=== PATIENT | female | born 1945 | race Caucasian/White ===

== ENCOUNTER 2016-04-23 12:40 | Inpatient (IN) | payer MEDICAID, MEDICARE ==
[~2016-04-23] VITALS: Ht 160 cm; Wt 76.7 kg
[2016-04-23 12:45] VITALS: BP_SYST 131; BP_SYST 149; BP_DIAS 112; BP_DIAS 72; PULSE 102; RESP 18; TEMP 98.4; O2SAT 100
--- NOTE | 2016-04-23 12:51 | NUR ---
Pt BIB BLS, placed in ER bed 08, report given to DORIAN Bui.
--- NOTE | 2016-04-23 13:00 | NUR ---
Pt bib EMS for L knee swelling and pain s/p mech fall x 2months.Pt seen by PMD. Pt ambulates w/front wheeled walker.
--- NOTE | 2016-04-23 13:15 | NUR ---
ER at bedside examining patient.
[2016-04-23] MEDS ORDERED: KETOROLAC TROMETHAMINE 30 MG VIAL IM ONE (13:30)
--- NOTE | 2016-04-23 13:43 | NUR ---
lab at [facility] for blood specimen collection
[2016-04-23 14:01] LABS: BASOPHILS % (AUTO) 0.3 % (0.0-2.0); EOSINOPHILS % (AUTO) 0.4 % (0.0-4.0); HEMATOCRIT 34.1 % (36-48); HEMOGLOBIN 11.8 g/dL (12.0-16.0); LYMPHOCYTES % (AUTO) 8.7 % (20.5-51.5); MEAN CORPUSCULAR HEMOGLOBIN 28 pg (27-31); MEAN CORPUSCULAR HGB CONC 35 % (32-36); MEAN CORPUSCULAR VOLUME 82 fL (79.0-98.0); MONOCYTES # (AUTO) 0.8 K/uL (0.0-1.0); MONOCYTES % (AUTO) 6.8 % (1.7-9.3); NEUTROPHILS # (AUTO) 9.8 K/uL (1.8-7.7); NEUTROPHILS % (AUTO) 83.8 % (40.0-70.0); PLATELET COUNT (AUTO) 261 K/uL (130-430); RED BLOOD CELL COUNT(AUTO) 4.15 MIL/uL (4.2-6.2); RED CELL DISTRIBUTION WIDTH 14.5 % (9.0-15.0); WHITE BLOOD COUNT (AUTO) 11.6 K/uL (4.8-10.8)
[2016-04-23 14:17] LABS: CALCIUM 9.1 mg/dL (8.4-11.0); POTASSIUM 3.5 mmol/L (3.5-5.1)
[2016-04-23 14:18] LABS: CREATININE 3.97 mg/dL (0.55-1.30); URIC ACID 8.9 mg/dL (2.4-7.0)
--- NOTE | 2016-04-23 14:25 | NUR ---
PT SLEEPY AROUSABLE, PT REPORTS RESIDING IN [facility].
--- NOTE | 2016-04-23 15:00 | NUR ---
PT'S SOILED CLOTHES CHANGED AND PT CLEANED.SOILED LINEN CHANGED ALSO.PT TOLERATED WELL. NO SKIN BREAKDOWN NOTED.
--- NOTE | 2016-04-23 15:15 | NUR ---
PT APPEARS TO BE UNABLE TO CARE FOR SELF.DR.[place].
--- NOTE | 2016-04-23 15:30 | NUR ---
# 16 FR Mcgill catheter with use of sterile technique. Immediate return of 60 cc TURBID urine noted. Bedside drainage bag placed below level of bladder. Urine sample collected and sent to lab. Pt tolerated procedure WELL. Patient arrived with mcgill in place, changed due to standard of practice prior to admission. Patient unable to toilet self.
--- NOTE | 2016-04-23 16:06 | NUR ---
Attempted to reconcile medication, pt states she takes HTN medication, name unknown.
[2016-04-23 16:10] LABS: BILIRUBIN,URINE 1+ (NEGATIVE); BLOOD, URINE 3+ (NEGATIVE); CLARITY/URINE SL CLOUDY (CLEAR); COLOR,URINE AMBER (YELLOW); GLUCOSE,URINE NEGATIVE (NEGATIVE); KETONES,URINE TRACE (NEGATIVE); LEUKOCYTE ESTERASE ,URINE 2+ (NEGATIVE); NITRITE, URINE POSITIVE (NEGATIVE); PROTEIN URINE 2+ (NEGATIVE); UROBILINOGEN,URINE 0.2 (0.2-1.0)
[2016-04-23] MEDS ORDERED: cefTRIAXone 1 GM IVPB PREMIX 50 ML IV ONE (16:15)
[2016-04-23 16:26] LABS: RBC,URINE >100 /HPF (0-3); WBC,URINE 80-100 /HPF (0-3)
[2016-04-23 16:27] LABS: BACTERIA,URINE MANY /HPF (None Seen)
[2016-04-23 16:34] LABS: BENZODIAZEPINE, URINE POSITIVE (NEG <=150); METHAMPHETAMINES SCREEN,URINE POSITIVE (NEG <=500); OPIATE, URINE POSITIVE (NEG <=100); URINE METHADONE POSITIVE (NEG <=200)
[2016-04-23 16:35] LABS: BARBITURATE, URINE NEGATIVE (NEG <=200); CANNABINOID, URINE NEGATIVE (NEG <=50); COCAINE, URINE NEGATIVE (NEG <=150); PHENCYCLIDINE SCREEN,URINE NEGATIVE (NEG <=25); UR TRICYCLIC ANTIDEPRESSANTS NEGATIVE (NEG <=300); URINE AMPHETAMINE NEGATIVE (NEG <=500); URINE OXYCODONE SCREEN NEGATIVE (NEG <=100); URINE PROPOXYPHENE SCREEN NEGATIVE (NEG <=300)
--- NOTE | 2016-04-23 16:40 | NUR ---
Patient will be admitted to care of . Admitted to MED/SURG unit. Will go to room 112A. Summary report printed. Report given to ADMISSION RN.
[2016-04-23] MEDS ORDERED: NACL 0.9% 1,000 ML IV ONE (16:45)
--- NOTE | 2016-04-23 16:46 | NUR ---
ADMISSION NOTE Received patient from ER via sandy, received report from ANTHONY ALARCON. Patient admitted with diagnosis of LEFT KNEE PAIN /DEHYDRATION. Patient oriented to hospital routine, call light, toileting and safety-patient verbalized understanding.
[2016-04-23 16:50] VITALS: BP 139/77; PULSE 72; RESP 18; TEMP 96.6; O2SAT 96
--- NOTE | 2016-04-23 17:40 | NUR ---
NOTE REC'D PT FROM JUSTUS CRUZ RN AT 1700. PT'S ADMISSION ASSESSMENT WAS COMPLETED AT THIS TIME. PT CONFUSED, STATES SHE IS NOT SURE HOW SHE GOT TO THE HOSPITAL AND WHAT SHE WAS HERE FOR. STATES HER STOMACH HURTS. PT HAS FIGUEREDO CATHETER AND IV IN LEFT FOREARM WITH IVF'S INFUSING WELL AT THIS TIME. PT WAS ORIENTED TO ROOM AND NURSING ROUTINES AND PROCEDURES AT THIS TIME. PT STATES SHE IS HUNGRY AND COLD. PT VERY DROWSY WELL AT THIS TIME. PT NOW SITTING UP IN BED EATING HER DINNER. CALL LIGHT WITHIN REACH. Addendum: 04/23/16 at 1750 by Sobeida Palacios RN PT STATES SHE DOES NOT REMEMBER THE NAME OF HER HTN MEDICATION OR THE NAME OF HER PHARMACY AT THIS TIME.
--- NOTE | 2016-04-23 18:18 | NUR ---
NOTE DR HENRY AT BEDSIDE AT THIS TIME.
[2016-04-23] MEDS ORDERED: SUCR1TAB78 PO (18:31)
[2016-04-23] MEDS ORDERED: AMIT10TA6 PO (18:31)
--- NOTE | 2016-04-23 18:34 | NUR ---
NOTE PT'S DAUGHTER CA CALLED FOR MEDICATION LIST AND LIVING SITUATION OF PT. CA STATES PT WAS LIVING IN A MOTEL FOR A FEW DAYS AND SHE IS AWARE OF 2 OF PT'S MEDICATIONS AND PT'S PHARMACY IS [facility] [place] [facility] DR HENRY GIVEN THIS INFORMATION, PT SLEEPING AT THIS TIME. NO SOB/RESP DISTRESS OR PAIN/DISCOMFORT NOTED. PT NEXT TO NURSES' STATION FOR CLOSE OBSERVATION. FIGUEREDO CATHETER INTACT AND IVF'S INFUSING WELL AT THIS TIME. CALL LIGHT WITHIN REACH.
[2016-04-23 20:00] VITALS: BP 140/86; PULSE 86; RESP 18; TEMP 97.9; O2SAT 97
--- NOTE | 2016-04-23 20:00 | NUR ---
PM ASSESSMENT: PATIENT IN BED WITH EYES CLOSE. OPENS WHEN CALLED HER NAME. KNOWS HER NAME ,WHERE SHE IS BUT NO SPECEFIC PLACE.FORGETFUL OF TIME. KNOW BIRTHDAY.SLEEPY. IVF INFUSING WELL AT 150ML/HR REPORTED TO FINISH THE BAG THEN FOLLOW ORDER.LEFT KNEE AND LEG SWOLLEN, WARM TO TOUCH. RIGHT WITH LESS SWELLING. FIGUEREDO DRAINING WITH DARK CONCENTRATED URINE. CALL LIGHT WITHIN REACH. BED IN LOW POSITION. BED ALARM TURNED ON.
--- NOTE | 2016-04-23 22:05 | NUR ---
NEW IVF STARTED. IV SITE CLEAR.REPOSITIONED. ANSWERED QUESTIONS CORRECTLY. TOOK PO MEDS WITHOUT PROBLEM.
[2016-04-23] MEDS ORDERED: KCL 20 mEq in 100 mL (PREMIX) 100 ML IV ONE (22:20)
[2016-04-23] MEDS: POTASSIUM CHLORIDE 10 MEQ in NACL 0.9% 1,000 ML IV SCH (22:39)
[2016-04-23] MEDS: COLCHICINE 0.6 MG TABLET PO SCH (22:44)
[2016-04-23] MEDS: HYDROcodone/ACETAMIN 5-325 MG TAB (NORCO/ VICODIN) PO PRN (22:47)
[2016-04-23 23:24] VITALS: BP 149/77; PULSE 64; RESP 18; TEMP 97.2; O2SAT 99
--- NOTE | 2016-04-24 00:10 | NUR ---
Consultation called: Reason for consultation: LEO Was consult called: Yes Person who was notified: Britt Consulting Physician: Kenji Sultana Shut Off Worker
--- NOTE | 2016-04-24 00:15 | NUR ---
REPOSITIONED. NEEDS ATTENDED.MORE COHERENT.
[2016-04-24 04:04] VITALS: BP 96/52; PULSE 62; RESP 18; TEMP 97.8; O2SAT 97
--- NOTE | 2016-04-24 04:20 | NUR ---
VITAL SIGNS TAKEN. NO ACUTE DISTRESS. DENIES PAIN.
--- NOTE | 2016-04-24 06:30 | NUR ---
CLOSING: STILL WITH EPISODES OF CONFUSIONS. HOURLY ROUNDS DONE. ALL NEEDS WERE ATTENDED,KEEP REORIENTATING. FALL AND ASPIRATION PRECAUTION IN PROGRESS.
[2016-04-24 07:21] LABS: BASOPHILS # (AUTO) 0.1 K/uL (0.0-0.2); BASOPHILS % (AUTO) 0.9 % (0.0-2.0); EOSINOPHILS # (AUTO) 0.5 K/uL (0.0-0.4); EOSINOPHILS % (AUTO) 5.7 % (0.0-4.0); HEMOGLOBIN 9.2 g/dL (12.0-16.0); LYMPHOCYTES # (AUTO) 1.2 K/uL (1.0-5.5); LYMPHOCYTES % (AUTO) 14.1 % (20.5-51.5); MEAN CORPUSCULAR HEMOGLOBIN 28 pg (27-31); MEAN CORPUSCULAR HGB CONC 33 % (32-36); MEAN CORPUSCULAR VOLUME 85 fL (79.0-98.0); MONOCYTES # (AUTO) 0.7 K/uL (0.0-1.0); MONOCYTES % (AUTO) 8.6 % (1.7-9.3); NEUTROPHILS # (AUTO) 5.8 K/uL (1.8-7.7); NEUTROPHILS % (AUTO) 70.7 % (40.0-70.0); PLATELET COUNT (AUTO) 225 K/uL (130-430); RED BLOOD CELL COUNT(AUTO) 3.31 MIL/uL (4.2-6.2); RED CELL DISTRIBUTION WIDTH 15.1 % (9.0-15.0)
[2016-04-24 07:29] LABS: WHITE BLOOD COUNT (AUTO) 8.3 K/uL (4.8-10.8)
[2016-04-24 07:49] LABS: ALBUMIN 2.3 g/dL (3.4-4.8); CALCIUM 8.3 mg/dL (8.4-11.0); CREATININE 2.62 mg/dL (0.55-1.30); FREE T4 (FREE THYROXINE) 0.9 ng/dL (0.6-1.6); POTASSIUM 3.3 mmol/L (3.5-5.1); THYROID STIMULATING HORMONE 0.44 uIu/mL (0.34-4.82); TOTAL BILIRUBIN 0.2 mg/dL (0.0-1.0)
--- NOTE | 2016-04-24 08:00 | NUR ---
AM ROUNDS: NO s/s of distress noted. Will continue to monitor.
[2016-04-24 08:55] VITALS: BP 109/57; PULSE 59; RESP 20; TEMP 98.4; O2SAT 97
[2016-04-24] MEDS: COLCHICINE 0.6 MG TABLET PO SCH ×2 (09:00→20:49)
--- NOTE | 2016-04-24 09:33 | NUR ---
Nutrition Update Toni Scale 17 noted. Pt admitted for knee pain, dehydration. Diet: regular BMI: 30.1 kg/m2 RD to follow per nutrition care standards.
--- NOTE | 2016-04-24 10:03 | NUR ---
PATIENT RESTING: Patient resting quietly. No acute distress noted. Vital signs within normal range.
[2016-04-24] MEDS ORDERED: FERR-57 PO (11:26)
[2016-04-24] MEDS ORDERED: PRO40 PO (11:26)
[2016-04-24 12:00] VITALS: BP 108/54; PULSE 61; RESP 21; TEMP 98; O2SAT 97
--- NOTE | 2016-04-24 12:26 | NUR ---
PATIENT RESTING: Patient resting quietly. No acute distress noted. Vital signs within normal range.
--- NOTE | 2016-04-24 12:54 | NUR ---
Social Service Note: Pt referred to manager social responsibility by physician due to pt being homeless. ASSISTANT COOK met with pt at bedside; ASSISTANT COOK asked pt about her living situation; pt states that she "thinks" she came from a motel; pt cannot tell ASSISTANT COOK which motel; pt cannot tell ASSISTANT COOK how long she has been at the motel. Pt states that she was living with her daughter; pt cannot tell ASSISTANT COOK the name of her daughter or when she was last living with her daughter. Pt states that she receives social security; pt cannot tell ASSISTANT COOK how much she receives. Pt states that she has 5 daughters. ASSISTANT COOK has placed homeless waiver and [facility] list in pt's chart. ASSISTANT COOK will remain available for support and will assist further once pt has been evaluated by PT and a DC plan has been determined.
[2016-04-24] MEDS ORDERED: POTASSIUM CHLORIDE 20 MEQ TAB.PRT.SR PO ONE (13:15)
[2016-04-24] MEDS: POTASSIUM CHLORIDE 10 MEQ in NACL 0.9% 1,000 ML IV SCH (13:24)
[2016-04-24] MEDS: HYDROcodone/ACETAMIN 5-325 MG TAB (NORCO/ VICODIN) PO PRN ×2 (13:29→20:55)
[2016-04-24] MEDS: SUCRALFATE 1 GM TABLET PO SCH ×2 (14:22→20:53)
--- NOTE | 2016-04-24 14:32 | NUR ---
PATIENT RESTING: Patient resting quietly. No acute distress noted. Vital signs within normal range.
[2016-04-24] MEDS: cefTRIAXone 1 GM IVPB PREMIX 50 ML IV SCH (15:56)
[2016-04-24 16:00] VITALS: BP 129/72; PULSE 58; RESP 20; TEMP 98; O2SAT 98
--- NOTE | 2016-04-24 16:13 | NUR ---
PATIENT RESTING: Patient resting quietly. No acute distress noted. Vital signs within normal range.
--- NOTE | 2016-04-24 18:54 | NUR ---
CLOSING NOTE: All needs met. Patient kept NPO since lunch for abdominal ultra sound to be performed tonight. Will endorse to NOC shift nurse.
--- NOTE | 2016-04-24 19:40 | NUR ---
initial nursing notes: Patient is awake. Patient is NPO due to abdominal ultrasound. IV fluid infusing on the left hand.
[2016-04-24 20:30] VITALS: BP 145/71; PULSE 63; RESP 16; TEMP 99.2; O2SAT 98
[2016-04-24] MEDS: FERROUS SULFATE 325 MG TABLET.DR PO SCH (20:50)
[2016-04-24] MEDS: AMITRIPTYLINE HCL 10 MG TABLET (ELAVIL) PO SCH (20:52)
[2016-04-24] MEDS: PANTOPRAZOLE SODIUM 40 MG TAB PO SCH (20:53)
--- NOTE | 2016-04-24 21:40 | NUR ---
nursing rounds: Patient has resumed diet. Abdominal ultrasound completed.
--- NOTE | 2016-04-24 23:40 | NUR ---
nursing rounds: Patient is resting in bed. Patient denies of having pain.
[2016-04-25] VITALS: BP 136/70; PULSE 60; RESP 18; TEMP 98.6; O2SAT 99
[2016-04-25] MEDS: POTASSIUM CHLORIDE 10 MEQ in NACL 0.9% 1,000 ML IV SCH ×3 (00:45→23:33)
--- NOTE | 2016-04-25 01:40 | NUR ---
nursing rounds: Patient is asleep in bed. No shortness of breath noted.
--- NOTE | 2016-04-25 03:40 | NUR ---
nursing rounds: Patient calmly resting in bed. Patient has no respiratory distress.
[2016-04-25 04:43] VITALS: BP 130/74; PULSE 64; RESP 18; TEMP 98.5; O2SAT 94
--- NOTE | 2016-04-25 05:40 | NUR ---
nursing rounds: Patient is asleep. IV access and [place] catheter intact.
[2016-04-25 07:46] LABS: BASOPHILS # (AUTO) 0.1 K/uL (0.0-0.2); BASOPHILS % (AUTO) 0.8 % (0.0-2.0); EOSINOPHILS # (AUTO) 0.4 K/uL (0.0-0.4); HEMATOCRIT 29.5 % (36-48); HEMOGLOBIN 9.6 g/dL (12.0-16.0); LYMPHOCYTES # (AUTO) 0.9 K/uL (1.0-5.5); LYMPHOCYTES % (AUTO) 12.2 % (20.5-51.5); MEAN CORPUSCULAR HEMOGLOBIN 28 pg (27-31); MEAN CORPUSCULAR HGB CONC 33 % (32-36); MEAN CORPUSCULAR VOLUME 85 fL (79.0-98.0); MONOCYTES # (AUTO) 0.5 K/uL (0.0-1.0); MONOCYTES % (AUTO) 6.5 % (1.7-9.3); NEUTROPHILS # (AUTO) 5.4 K/uL (1.8-7.7); NEUTROPHILS % (AUTO) 74.5 % (40.0-70.0); PLATELET COUNT (AUTO) 267 K/uL (130-430); RED BLOOD CELL COUNT(AUTO) 3.47 MIL/uL (4.2-6.2); RED CELL DISTRIBUTION WIDTH 15.7 % (9.0-15.0); WHITE BLOOD COUNT (AUTO) 7.3 K/uL (4.8-10.8)
--- NOTE | 2016-04-25 07:47 | NUR ---
AM ROUNDS: No s/s of distress noted. Will continue to monitor.
[2016-04-25 08:04] LABS: ALBUMIN 2.3 g/dL (3.4-4.8); CALCIUM 8.5 mg/dL (8.4-11.0); CREATININE 1.6 mg/dL (0.55-1.30); POTASSIUM 3.5 mmol/L (3.5-5.1); TOTAL BILIRUBIN 0.2 mg/dL (0.0-1.0); TOTAL PROTEIN, SERUM 6.2 g/dL (6.4-8.3)
[2016-04-25] MEDS: HYDROcodone/ACETAMIN 5-325 MG TAB (NORCO/ VICODIN) PO PRN ×3 (08:44→21:09)
[2016-04-25] MEDS: FERROUS SULFATE 325 MG TABLET.DR PO SCH ×2 (08:44→21:10)
[2016-04-25] MEDS: SUCRALFATE 1 GM TABLET PO SCH ×3 (08:44→21:10)
[2016-04-25] MEDS: COLCHICINE 0.6 MG TABLET PO SCH ×2 (08:44→21:10)
[2016-04-25 08:46] VITALS: BP 130/59; PULSE 66; RESP 20; TEMP 99.1; O2SAT 96
--- NOTE | 2016-04-25 08:49 | NUR ---
closing nursing notes: Patient is awake and alert. Patient denies of having pain. Patient is in no acute respiratory distress. Saline lock intact, no bleeding and no infiltration noted. No episodes of fall and no injuries throughout the slab miller operator. Provided nursing report to incoming morning shift nurse, DORIAN Goetz, at patient's bedside.
[2016-04-25] MEDS: PANTOPRAZOLE SODIUM 40 MG TAB PO SCH ×2 (09:00→21:09)
--- NOTE | 2016-04-25 10:11 | NUR ---
PATIENT RESTING: Patient resting quietly. No acute distress noted. Vital signs within normal range.
--- NOTE | 2016-04-25 11:16 | NUR ---
Pt refused hygienic care. Pt stated that she didn't wanted it right now. Will approach Pt later on during the day. DORIAN Goetz was notified and aware.
[2016-04-25 12:00] VITALS: BP 133/65; PULSE 70; RESP 18; TEMP 97.9; O2SAT 99
--- NOTE | 2016-04-25 12:30 | NUR ---
PHYSICAL THERAPY CO-SIGN The Physical Therapy Progress Notes documented by General Teller have been reviewed. Reviewed/Co-Signed by: Susanna Frank,PT Documentation Done by: Damir Linder PTA I concur with the documentation of this APPLICATION INTEGRATION ENGINEER. Plan: continue PT as per plan of care. Addendum: 04/25/16 at 1427 by Susanna Frank PT Amended: Links added.
--- NOTE | 2016-04-25 12:30 | NUR ---
PATIENT RESTING: Patient resting quietly. No acute distress noted. Vital signs within normal range.
--- NOTE | 2016-04-25 14:00 | NUR ---
PATIENT RESTING: Patient resting quietly. No acute distress noted. Vital signs within normal range.
[2016-04-25] MEDS: cefTRIAXone 1 GM IVPB PREMIX 50 ML IV SCH (15:05)
[2016-04-25 16:00] VITALS: BP 129/74; PULSE 69; RESP 18; TEMP 97.6; O2SAT 94
--- NOTE | 2016-04-25 18:36 | NUR ---
PT REFUSED HYGIENIC CARE (2ND ATTEMPT) PT STATED THAT SHE WAS JUST TO TIRED. DORIAN PACKER WAS NOTIFIED AND AWARE.
--- NOTE | 2016-04-25 19:35 | NUR ---
INITIAL NOTE Patient resting on the bed. No acute distress. Denied of pain at this time. Skin warm and dry to touch. IV intact to left wrist, no redness, no swelling, no drainage. On NS with KCl 10mEq at 100ml/hr, infusing well. F/C intact, drain gravity with yellow urine. SCD in placed. Safety measure maintained. Call light within reached. Side rails up, bed alarm on, bed in low position. Will continue to monitor.
[2016-04-25] MEDS: AMITRIPTYLINE HCL 10 MG TABLET (ELAVIL) PO SCH (21:10)
--- NOTE | 2016-04-25 23:22 | NUR ---
ROUND Patient sleeping at this time. No acute distress. Safety measure maintained. Call light within reached. Bed in low position, side rails up, bed alarm on. Continue to monitor.
[2016-04-25 23:54] VITALS: BP 129/66; PULSE 69; RESP 18; TEMP 98.2; O2SAT 97
[2016-04-26] MEDS: HYDROcodone/ACETAMIN 5-325 MG TAB (NORCO/ VICODIN) PO PRN ×5 (01:39→22:29)
--- NOTE | 2016-04-26 01:39 | NUR ---
NORCO GIVEN Patient C/O left knee pain 08/26. No acute distress. [place] 5/325mg 1 tab given as ordered. Safety measure maintained. Call light within reached. Bed in low position, bed alarm on, side rails up. Continue to monitor.
--- NOTE | 2016-04-26 03:27 | NUR ---
ROUND Patient resting on the bed with eyes closed. No acute distress. Call light within reached. Bed in low position, bed alarm on, side rails up. Continue to monitor.
[2016-04-26 04:06] VITALS: BP 146/75; PULSE 64; RESP 18; TEMP 98.4; O2SAT 97
--- NOTE | 2016-04-26 04:57 | NUR ---
ROUND Patient resting on the bed with eyes closed. No acute distress. Safety measure maintained. Call light within reached. Bed alarm on, side rails up, bed in low position. Continue to monitor.
--- NOTE | 2016-04-26 06:40 | NUR ---
CLOSING NOTE Patient resting on the bed with eyes closed. No acute distress. No c/o pain at this time. Skin warm and dry to touch. IV intact to left wrist, no redness, no swelling, no drainage. On NS with KCl 10mEq at 100ml/hr, infusing well. F/C intact, drain gravity with yellow urine. SCD in placed. All needs met. Hourly rounding during shift. Safety measure maintained. Call light within reached. Side rails up, bed alarm on, bed in low position. Will endorse to morning shift nurse.
[2016-04-26 07:07] LABS: BASOPHILS % (AUTO) 0.8 % (0.0-2.0); EOSINOPHILS # (AUTO) 0.6 K/uL (0.0-0.4); EOSINOPHILS % (AUTO) 10.6 % (0.0-4.0); HEMATOCRIT 28.9 % (36-48); HEMOGLOBIN 9.7 g/dL (12.0-16.0); LYMPHOCYTES # (AUTO) 1.6 K/uL (1.0-5.5); LYMPHOCYTES % (AUTO) 26.6 % (20.5-51.5); MEAN CORPUSCULAR HEMOGLOBIN 28 pg (27-31); MEAN CORPUSCULAR HGB CONC 34 % (32-36); MEAN CORPUSCULAR VOLUME 84 fL (79.0-98.0); MONOCYTES # (AUTO) 0.6 K/uL (0.0-1.0); MONOCYTES % (AUTO) 9.7 % (1.7-9.3); NEUTROPHILS # (AUTO) 3.1 K/uL (1.8-7.7); NEUTROPHILS % (AUTO) 52.3 % (40.0-70.0); PLATELET COUNT (AUTO) 322 K/uL (130-430); RED BLOOD CELL COUNT(AUTO) 3.46 MIL/uL (4.2-6.2); RED CELL DISTRIBUTION WIDTH 15.4 % (9.0-15.0); WHITE BLOOD COUNT (AUTO) 5.9 K/uL (4.8-10.8)
[2016-04-26 07:55] LABS: ALBUMIN 2.2 g/dL (3.4-4.8); CALCIUM 8.1 mg/dL (8.4-11.0); CREATININE 1.28 mg/dL (0.55-1.30); POTASSIUM 3.1 mmol/L (3.5-5.1); TOTAL BILIRUBIN 0.2 mg/dL (0.0-1.0)
--- NOTE | 2016-04-26 08:00 | NUR ---
OPENING NOTE: RECEIVED REPORT FROM NIGHT NURSE. PATIENT IS RESTING COMFORTABLY IN BED. NO S/S OF DISTRESS OR SOB. PATIENT IS ALERT AND ORIENTED. FIGUEREDO DRAINING TO GRAVITY. IV IS PATENT. VITAL SIGNS WNL, ASSESSMENT COMPLETE. CALL LIGHT IN REACH, BED IN LOWEST POSITION, AND WILL CONTINUE TO MONITOR.
[2016-04-26] MEDS: COLCHICINE 0.6 MG TABLET PO SCH ×2 (08:22→21:29)
[2016-04-26] MEDS: SUCRALFATE 1 GM TABLET PO SCH ×3 (08:22→21:29)
[2016-04-26] MEDS: FERROUS SULFATE 325 MG TABLET.DR PO SCH ×2 (08:23→21:28)
[2016-04-26] MEDS: PANTOPRAZOLE SODIUM 40 MG TAB PO SCH ×2 (08:23→21:29)
[2016-04-26 08:38] VITALS: BP 148/68; PULSE 73; RESP 18; TEMP 98.3; O2SAT 96
[2016-04-26] MEDS ORDERED: POTASSIUM CHLORIDE 20 MEQ/PKT PACKET PO ONE (09:15)
[2016-04-26] MEDS: POTASSIUM CHLORIDE 10 MEQ in NACL 0.9% 1,000 ML IV SCH ×3 (09:44→22:35)
--- NOTE | 2016-04-26 10:09 | NUR ---
NOTE: PATIENT IS RESTING COMFORTABLY IN BED. NO S/S OF DISTRESS OR SOB. PATIENT IS ALERT AND ORIENTED. CALL LIGHT IN REACH, BED IN LOWEST POSITION, AND WILL CONTINUE TO MONITOR.
--- NOTE | 2016-04-26 10:34 | NUR ---
Discharge Planning Called and requested list of contracted SNF facilities from [facility]. Per MIKAYLA Freitas @ [facility], asked that order be faxed to her attn: [phone]. Order faxed. Addendum: 04/26/16 at 1450 by Gricelda Palacio RN Called and left message with Rosaura [phone] @ [facility] again requesting list of contracted SNFs
[2016-04-26 11:07] LABS: HEPATITIS A AB, IgM Negative (Negative); HEPATITIS B CORE AB, IgM Negative (Negative); HEPATITIS B SURFACE AG Negative (Negative)
[2016-04-26 11:36] VITALS: BP 146/66; PULSE 68; RESP 19; TEMP 98.2; O2SAT 96
[2016-04-26] MEDS ORDERED: POTASSIUM CHLORIDE 20 MEQ TAB.PRT.SR PO ONE (12:00)
--- NOTE | 2016-04-26 12:00 | NUR ---
NOTE: PATIENT IS RESTING COMFORTABLY IN BED. NO S/S OF DISTRESS OR SOB. CALL LIGHT IN REACH, BED IN LOWEST POSITION, AND WILL CONTINUE TO MONITOR.
--- NOTE | 2016-04-26 14:00 | NUR ---
NOTE: PATIENT IS RESTING COMFORTABLY IN BED. NO S.S OF DISTRESS OR SOB. PATIENT IS AWAKE AND ALERT. CALL LIGHT IN REACH, BED IN LOWEST POSITION, AND WILL CONTINUE TO MONITOR.
[2016-04-26 14:16] VITALS: Ht 160 cm; Wt 76.7 kg
[2016-04-26 15:44] VITALS: BP 145/77; PULSE 68; RESP 19; TEMP 97; O2SAT 99
[2016-04-26] MEDS: cefTRIAXone 1 GM IVPB PREMIX 50 ML IV SCH (16:00)
--- NOTE | 2016-04-26 16:16 | NUR ---
NOTE: PATIENT IS RESTING COMFORTABLY IN BED. NO S.S OF DISTRESS OR SOB. PATIENT IS ASLEEP. CALL LIGHT IN REACH, BED IN LOWEST POSITION, AND WILL CONTINUE TO MONITOR.
--- NOTE | 2016-04-26 18:05 | NUR ---
PHYSICAL THERAPY CO-SIGN The Physical Therapy Progress Notes documented by Acute Care Occupational Therapist have been reviewed. I CONCUR W/SUPPLIES PACKER NOTE; CONT PER TX PLAN Reviewed/Co-Signed by: Anny Denson PT Documentation Done by: EBNITA HAQUE PTA Addendum: 04/27/16 at 0810 by Anny Denson PT Amended: Links added.
--- NOTE | 2016-04-26 18:16 | NUR ---
CLOSING NOTE: PATIENT IS RESTING COMFORTABLY IN BED. NO S/S OF DISTRESS OR SOB. PATIENT IS ALERT AND AWAKE. FIGUEREDO DRAINING TO GRAVITY. CALL LIGHT IN REACH, BED IN LOWEST POSITION, AND WILL GIVE REPORT TO NIGHT NURSE.
[2016-04-26 19:40] VITALS: BP 155/73; PULSE 59; RESP 19; TEMP 97.8; O2SAT 96
--- NOTE | 2016-04-26 19:40 | NUR ---
INITIAL NOTE Patient resting on the bed. No acute distress. C/O left knee pain /, [place] 5/325mg given at 1826, will give pain med PRN as ordered. Skin warm and dry to touch. IV intact to left wrist, no redness, no swelling, no drainage. On NS with KCl 10mEq at 100ml/hr, infusing well. F/C intact, drain gravity with yellow urine. SCD in placed. Safety measure maintained. Call light within reached. Side rails up, bed alarm on, bed in low position. Will continue to monitor.
--- NOTE | 2016-04-26 21:20 | NUR ---
ROUND Patient resting on the bed. No acute distress. Bed in low position, bed alarm on, side rails up. Call light within reached. Continue to monitor.
[2016-04-26] MEDS: AMITRIPTYLINE HCL 10 MG TABLET (ELAVIL) PO SCH (21:28)
--- NOTE | 2016-04-26 23:39 | NUR ---
ROUND Patient resting on the bed comfortable. No acute distress. Bed in low position, bed alarm on, side rails up. Call light within reached. Continue to monitor.
[2016-04-27] VITALS: BP 158/79; PULSE 62; RESP 16; TEMP 98.2; O2SAT 98
--- NOTE | 2016-04-27 01:45 | NUR ---
ROUND Patient sleeping comfortable. Respiration even and unlabored. No acute distress. Call light within reached. Side rails up, bed in low position, bed alarm on. Continue to monitor.
--- NOTE | 2016-04-27 03:20 | NUR ---
ROUND Patient sleeping comfortable. Respiration even and unlabored noted. Safety measure maintained. Bed in low position, bed alarm on, side rails up. Call light within reached. Continue to monitor.
[2016-04-27 04:00] VITALS: BP 154/85; PULSE 58; RESP 16; TEMP 97; O2SAT 97
--- NOTE | 2016-04-27 05:15 | NUR ---
ROUND Patient resting in the bed with eyes closed. No c/o pain at this time. Respiration even and unlabored noted. Safety measure maintained. Call light within reached. Continue to monitor.
[2016-04-27] MEDS: HYDROcodone/ACETAMIN 5-325 MG TAB (NORCO/ VICODIN) PO PRN ×4 (06:57→20:55)
--- NOTE | 2016-04-27 06:58 | NUR ---
CLOSING NOTE Patient woke up and c/o left knee pain 6/10, [place] 5/325mg given. No acute distress. Respiration even and unlabored note. Slept good last night. IV site intact, no redness, no swelling ,no drainage. IVF infusing well. F/C intact, drain gravity with yellow urine. All needs met. Hourly rounding during shift. Safety measure maintained. Bed in low position, side rails up, bed alarm on. Call light within reached. Will endorse to jeanette shift nurse.
--- NOTE | 2016-04-27 08:00 | NUR ---
OPENING NOTE: RECEIVED REPORT FROM NIGHT NURSE. PATIENT IS RESTING COMFORTABLY IN BED. NO S/S OF DISTRESS OR SOB. PATIENT IS AWAKE AND ALERT. FIGUEREDO DRAINING TO GRAVITY. VITAL SIGNS WNL, ASSESSMENT COMPLETE. CALL LIGHT IN REACH, BED IN LOWEST POSITION, AND WILL GIVE CONTINUE TO MONITOR.
[2016-04-27 08:02] LABS: CALCIUM 8.7 mg/dL (8.4-11.0); CREATININE 1.14 mg/dL (0.55-1.30); POTASSIUM 4.1 mmol/L (3.5-5.1)
[2016-04-27 08:34] VITALS: BP 147/67; PULSE 55; RESP 17; TEMP 97.4; O2SAT 96
[2016-04-27] MEDS: SUCRALFATE 1 GM TABLET PO SCH ×3 (09:07→20:56)
[2016-04-27] MEDS: COLCHICINE 0.6 MG TABLET PO SCH ×2 (09:07→20:55)
[2016-04-27] MEDS: FERROUS SULFATE 325 MG TABLET.DR PO SCH ×2 (09:07→20:56)
[2016-04-27] MEDS: PANTOPRAZOLE SODIUM 40 MG TAB PO SCH ×2 (09:07→20:56)
[2016-04-27] MEDS: POTASSIUM CHLORIDE 10 MEQ in NACL 0.9% 1,000 ML IV SCH ×2 (09:07→19:00)
--- NOTE | 2016-04-27 09:38 | NUR ---
CALLED [facility], RE: INFORM OF PT'S DC ORDER BACK TO [facility] AND REQUEST FOR THEIR PICK SERVICE . SPOKE TO EDUARD AND BELL SPINNER WILL BE BETWEEN 1200 - 1230. Addendum: 04/27/16 at 0942 by Anita Cleary CO/ PLS DISREGARD ABOVE NOTES , WRONG PATIENT
--- NOTE | 2016-04-27 09:56 | NUR ---
DC PLANNING: F/U with Roman briefcase sewer, s/w Zena # [phone] and with Gricelda, career resource specialist # [phone]. Per Gricelda stated the Snf list was faxed to a wrong number. This cm requested to refax the list with the correct fax number. Per Gricelda: she is looking for placement for the pt. which so far she has not received any acceptance. She asked [facility], dept to help finding the accepting SNF to help expedite the transfer. -- CM is waiting for the contracted SNF/home health list. >> S/w the pt's dtr, Astrid Fish # [phone] re: pt. is being discharged to SNF. The dtr requests transferring the pt to snf in [facility] where are closer to her home. She prefers not to take the pt. back but will actively looking for a permanent placement ie: SNF, assisted living for the pt. Had she could not arrange for a new placement for the pt, she will take the pt. home post SNF. [facility], [facility], and [facility] retirement contact numbers provided to the dtr for her mother placement consideration.
--- NOTE | 2016-04-27 10:00 | NUR ---
NOTE: PATIENT IS RESTING COMFORTABLY IN BED. NO S/S OF DISTRESS OR SOB. PATIENT IS AWAKE AND ALERT. CALL LIGHT IN REACH, BED IN LOWEST POSITION, AND WILL CONTINUE TO MONITOR.
--- NOTE | 2016-04-27 12:00 | NUR ---
NOTE: PATIENT IS RESTING COMFORTABLY IN BED. NO S/S OF DISTRESS OR SOB. PATIENT IS AWAKE. CALL LIGHT IN REACH, BED IN LOWEST POSITION, AND WILL CONTINUE TO MONITOR.
[2016-04-27 13:55] VITALS: BP 144/74; PULSE 70; RESP 18; TEMP 97.5; O2SAT 98
--- NOTE | 2016-04-27 14:00 | NUR ---
NOTE: PATIENT IS RESTING COMFORTABLY IN BED. NO S.S OF DISTRESS OR SOB. PATIENT IS ALERT AND AWAKE. CALL LIGHT IN REACH, BED IN LOWEST POSITION, AND WILL CONTINUE TO MONITOR.
--- NOTE | 2016-04-27 14:33 | NUR ---
DISCHARGE PLANNING Received copy contracted SNF list. Faxed SNF referral to [facility]. Will follow up. Addendum: 04/27/16 at 1548 by Jinny Lilly DP Spoke with Sia in admitting at [facility] facility full has no Female beds available at this time.
[2016-04-27] MEDS: cefTRIAXone 1 GM IVPB PREMIX 50 ML IV SCH (15:28)
--- NOTE | 2016-04-27 16:14 | NUR ---
NOTE: PATIENT IS RESTING COMFORTABLY IN BED. NO S/S OF DISTRESS OR SOB. PATIENT C/O OF PAIN. NORCO WAS GIVEN. CALL LIGHT IN REACH, BED IN LOWEST POSITION, AND WILL CONTINUE TO MONITOR.
--- NOTE | 2016-04-27 17:48 | NUR ---
Mcgill D/C and IV mcgill was d/c's. will monitor for urine output IV site was leaking and starting to show signs of infiltration. IV was removed and patient refused to get a new IV at the moment. Will try again later.
[2016-04-27 17:58] VITALS: BP 158/73; PULSE 59; RESP 18; TEMP 96.6; O2SAT 98
--- NOTE | 2016-04-27 18:28 | NUR ---
CLOSING NOTE: PATIENT IS RESTING COMFORTABLY IN BED. NO S/S OF DISTRESS OR SOB. PATIENT IS AWAKE AND ALERT. CALL LIGHT IN REACH, BED IN LOWEST POSITION, AND WILL GIVE REPORT TO NIGHT NURSE.
--- NOTE | 2016-04-27 20:00 | NUR ---
PM round pt awake alert oriented x 2. name and . Educated pt regarding IV access for antibiotics. And IV antibiotics hanging at bedside. Pt verbalized understanding. But still refused IV insertion. safety precaution in place. bed in the lowest position, locked. pt had no IV access. Plan of care discussed by educating pt regarding 2100 medication. verbalizedunderstanding. Call light within reach. will continue to monitor.
--- NOTE | 2016-04-27 20:15 | NUR ---
Pt had passed BM in bed. dark brown, firm. mar care provided with changed gown. comfort needs met. call light in reach
[2016-04-27] MEDS: AMITRIPTYLINE HCL 10 MG TABLET (ELAVIL) PO SCH (20:56)
[2016-04-28 00:02] VITALS: BP 147/65; PULSE 63; RESP 18; TEMP 97.4; O2SAT 98
[2016-04-28] MEDS: HYDROcodone/ACETAMIN 5-325 MG TAB (NORCO/ VICODIN) PO PRN ×4 (01:36→17:42)
--- NOTE | 2016-04-28 01:55 | NUR ---
Pt used call light, asked for pain relieve medication. Educated pt that pain relieve medication was administered. verbalized understanding. Repositioned pt for comfort. call light in reach Addendum: 04/28/16 at 0536 by Jewel Mccrary RN educated pt regarding IV insertion. pt refused.
--- NOTE | 2016-04-28 03:00 | NUR ---
Rounds eyes closed. No distress noted. No facial grimacing noted. Comfortable.
[2016-04-28 04:11] VITALS: BP 126/69; PULSE 67; RESP 18; TEMP 98.4; O2SAT 97
--- NOTE | 2016-04-28 05:35 | NUR ---
Note notified charge nurse regarding pt refused of IV insertion and IV had came off 04/27/16 during the day shift.
--- NOTE | 2016-04-28 06:40 | NUR ---
Closing note pt awake alert. hourly rounds done throughout the shift, comfort needs met. educated to use call light for assistance and pain management education verbally provided. verbalized understanding. will endorsed to the day shift nurse to continue care.
--- NOTE | 2016-04-28 08:00 | NUR ---
INITIAL NOTE PT LYING IN BED, RESTING, EASY TO AROUSE, NO S/S OF DISTRESS OR DISCOMFORT NOTED, ALERT AND ORIENTED X3, NOTED. PT ASKED TO BED PLACED ON BEDPAN, NOTED SKIN TEAR TO POSTERIOR RIGHT THIGH, PT DENIES ANY PAIN OR KNOWLEDGE OF WHEN OR HOW IT OCCURRED, WILL FOLLOW UP. PER REPORT PT REFUSED IV ACCESS, WILL TRY AGAIN TODAY TO EDUCATE REGARDING NEED FOR ACCESS TO CONTINUE ANTIBIOTIC THERAPY. SAFETY MEASURES IN PLACE, PT REORIENTED TO USE OF CALL LIGHT AND IT IS PLACED WITHIN REACH, BED IN LOW POSITION.
[2016-04-28 08:13] VITALS: BP 144/66; PULSE 71; RESP 16; TEMP 97.6; O2SAT 97
[2016-04-28] MEDS: COLCHICINE 0.6 MG TABLET PO SCH ×2 (08:21→21:06)
[2016-04-28] MEDS: SUCRALFATE 1 GM TABLET PO SCH ×3 (08:21→21:06)
[2016-04-28] MEDS: FERROUS SULFATE 325 MG TABLET.DR PO SCH ×2 (08:22→21:06)
[2016-04-28] MEDS: PANTOPRAZOLE SODIUM 40 MG TAB PO SCH ×2 (08:22→21:06)
--- NOTE | 2016-04-28 10:12 | NUR ---
DISCHARGE PLANNING Received call from [facility] patient denied, facility has no [facility] beds available. Addendum: 04/28/16 at 1222 by Jinny Lilly DP Faxed snf referral to [facility], [facility].
--- NOTE | 2016-04-28 10:50 | NUR ---
Wound Evaluation: Late note for 1050 secondary to patient care. Wound Consult ordered for Low Toni Score. Patient evaluated for a low Toni score of 18. Patient was awake, alert, and received in a [place] Bed with an Atmos-Air 9000 mattress. Patient is able to turn in bed. Skin is fair (-). Recommend reposition patient side to side only every 2 hours with pillow support. Elevate, off-load and float bilateral heels with pillows. Offload pressure areas with pillows for pressure re-distribution. Perform skin care and monitor skin integrity Q shift. Use moisture barrier cream on moisture susceptible areas QID and PRN for soiling. Skin assessment: Right Posterior Mid Thigh: Appears to be a friction injury. Small area of non-intact skin with 100% pink tissue, rest of area has loose, dark discolored skin. No odor, no drainage. Measures 3.5 cm x 13.0 cm. Recommend: Cleanse area with normal Saline. Pat dry. Apply moisture barrier cream to involved area. Cover with foam dressings. Perform site care daily, and as needed for dressing soiling or dislodgement. Will continue to follow as a Toni.
--- NOTE | 2016-04-28 10:50 | NUR ---
WOUND CAR CONSULT WITH JAZIEL AT BEDSIDE, ASSESSED WOUND TO RIGHT POSTERIOR MIDTHIGH, RECOMMENDATION IS BARRIER CREAM AND MONITOR.
--- NOTE | 2016-04-28 11:45 | NUR ---
PHYSICAL THERAPY CO-SIGN The Physical Therapy Progress Notes documented by Health It Specialist have been reviewed. Reviewed/Co-Signed by: Susanna Frank,PT Documentation Done by: Andrade Last PTA I concur with the documentation of this FIELD PRODUCER. Plan: continue PT as per plan of care. Addendum: 04/29/16 at 0827 by Susanna Frank PT Amended: Links added.
[2016-04-28 12:27] VITALS: BP 141/78; PULSE 93; RESP 18; TEMP 97.8; O2SAT 97
--- NOTE | 2016-04-28 15:05 | NUR ---
DC PLANNING: Verbal update with cameron Madison at [facility] re: finding placement for the pt. Informed her that [facility] , there is no accepting facility, and additional 3 more referral facilities has been requested by our DCP. Gricelda also has been looking for a snf for the pt. softx she does not have any accepting one. Gricelda will continue to assist finding a snf for the pt.
[2016-04-28] MEDS: cefTRIAXone 1 GM IVPB PREMIX 50 ML IV SCH (15:06)
[2016-04-28] MEDS: POTASSIUM CHLORIDE 10 MEQ in NACL 0.9% 1,000 ML IV SCH ×2 (15:08→22:31)
[2016-04-28 16:53] VITALS: BP 136/72; PULSE 89; RESP 17; TEMP 98; O2SAT 97
--- NOTE | 2016-04-28 17:08 | NUR ---
DISCHARGE PLANNING DC order to arrange home health. Faxed home health referral to [phone]. Called and spoke with intake dept who stated patient currently on service with [facility]. Called [facility] voice mailbox full and unable to leave voice message. Called alternate fax number. Faxed home health referral. Note left for CM to follow up in AM with [facility] to resume home health.
--- NOTE | 2016-04-28 17:45 | NUR ---
Spoke with daughter Esthela to arrange picking machine operator for discharge, daughter stated that the patient cannot be discharge to them that she is homeless. Also called next of kin in paper, Astrid, daughter, whom also stated that they will not picking machine operator patient. Astrid also spoke with the patient and informed her that she will not be picking her up today. Dr Salas paged to update on status.
--- NOTE | 2016-04-28 18:33 | NUR ---
Dr Salas aware that patients daughters stated that patient cannot be discharged to their care, discharge held.
--- NOTE | 2016-04-28 19:00 | NUR ---
CLOSING NOTE PT LYING IN BED, NO S/S OF DISTRESS NOTED, NO COMPLAINT OF PAIN AT THIS TIME, NEEDS ATTENDED TO THROUGH OUT SHIFT, IV STARTED TO LFA 22 GAUGE, PATENT, INTACT AND INFUSING, NO S/S OF INFILTRATION NOTED, PATIENT AWARE OF DISCHARGE HOLD, SAFETY MEASURES IN PLACE, BED IN LOW POSITION, CALL LIGHT WITHIN REACH, WILL ENDORSE CARE TO FOLLOWING SHIFT.
--- NOTE | 2016-04-28 19:50 | NUR ---
initial nursing notes: Patient in bed. Patient has SCD's. Patient has an IV access on the left AC. Patient has a popped length-collins blister (about 5-6 inches long) across the back of her right posterior midthigh section. The blister is open to air. Patient denies of having pain.
[2016-04-28 19:56] VITALS: BP 144/73; PULSE 68; RESP 16; TEMP 97.7; O2SAT 97
[2016-04-28] MEDS: AMITRIPTYLINE HCL 10 MG TABLET (ELAVIL) PO SCH (21:06)
--- NOTE | 2016-04-28 21:50 | NUR ---
nursing rounds: Patient had an episode of urinary incontinence in bed. Patient has been cleaned and patient's bed cover (chux) has been changed.
--- NOTE | 2016-04-28 23:50 | NUR ---
nursing rounds: Patient uses bedside commode. Patient had a bowel movement.
[2016-04-29] VITALS (7 sets, daily range): BP systolic 112–158; BP diastolic 64–82; PULSE 65–83; RESP 15–18; TEMP 97.8–98.6; O2SAT 95–98
--- NOTE | 2016-04-29 01:50 | NUR ---
nursing rounds: Patient is able to use bedside commode to void. Assisted patient in transferring from bed to bedside commode and back in bed.
[2016-04-29] MEDS: HYDROcodone/ACETAMIN 5-325 MG TAB (NORCO/ VICODIN) PO PRN ×3 (03:20→13:26)
--- NOTE | 2016-04-29 03:25 | NUR ---
nursing rounds: Patient had just received pain medication PO. Will reassess patient's condition.
--- NOTE | 2016-04-29 04:30 | NUR ---
nursing rounds: Patient stated that the pain medication took away the pain. Patient denies of having pain at this time.
--- NOTE | 2016-04-29 05:55 | NUR ---
nursing rounds: Patient is asleep. Patient has no shortness of breath.
--- NOTE | 2016-04-29 07:28 | NUR ---
AM ROUNDS: No s/s of distress noted. Will continue to monitor.
--- NOTE | 2016-04-29 07:43 | NUR ---
closing nursing notes: Patient is awake and alert. Patient denies of having pain. Patient is in no acute respiratory distress. IV fluid infusing on the left AC. Patient has a bedside commode. No episodes of fall and no injuries throughout the shift supervisor melting. Provided nursing report to incoming morning shift nurse, DORIAN Goetz, at patient's bedside.
[2016-04-29] MEDS: POTASSIUM CHLORIDE 10 MEQ in NACL 0.9% 1,000 ML IV SCH ×2 (08:15→17:12)
[2016-04-29] MEDS: SUCRALFATE 1 GM TABLET PO SCH ×3 (08:16→20:34)
[2016-04-29] MEDS: FERROUS SULFATE 325 MG TABLET.DR PO SCH ×2 (08:16→20:34)
[2016-04-29] MEDS: PANTOPRAZOLE SODIUM 40 MG TAB PO SCH ×2 (08:16→20:34)
[2016-04-29] MEDS: COLCHICINE 0.6 MG TABLET PO SCH ×2 (08:16→20:35)
--- NOTE | 2016-04-29 10:23 | NUR ---
PATIENT RESTING: Patient resting quietly. No acute distress noted. Vital signs within normal range.
--- NOTE | 2016-04-29 10:45 | NUR ---
PHYSICAL THERAPY CO-SIGN The Physical Therapy Progress Notes documented by Medical Center Director have been reviewed. Reviewed/Co-Signed by: Susanna Frank,PT Documentation Done by: Mamie Castro PTA I concur with the documentation of this ANESTHESIOLOGIST AND CRITICAL CARE. Plan: continue PT as per plan of care. Addendum: 04/29/16 at 1108 by Susanna Frank PT Amended: Links added.
--- NOTE | 2016-04-29 12:03 | NUR ---
PATIENT RESTING: Patient resting quietly. No acute distress noted. Vital signs within normal range.
--- NOTE | 2016-04-29 13:55 | NUR ---
CM DC PLANNING CALLED TO [facility]; S/W GOMEZ; STATED THAT SHE WOULD LOOK INTO ACCEPTING BACK UNDER Pt's MEDICARE COVERAGE THEY ARE NOT CONTRACTED WITH ANY HEALTH PLANS OR IPAs. 1545: GOMEZ CALLED BACK AND STATED THEY WILL F/UP WITH MEDICARE COVERAGE ON SUNDAY, BUT DID ACCEPT Pt FOR HOME HEALTH ONCE DC'D. CM CALLED TO [facility]; LEFT [facility] REQUESTING CALL BACK Pt HAS BEEN DISCHARGED. NO CALL BACK; PROVIDED THE NURSING STATION CONTACT NUMBER TO TALK WITH NURSE ABOUT TIMING OF DC. CM UPDATED RN/TERENCE ABOUT ABOVE CM ACTIONS; RN/TERENCE STATED NATHAN/MELCHOR ALSO CALLED TO DTR TO INFORM OF DC FOR TODAY.
--- NOTE | 2016-04-29 14:07 | NUR ---
pts daughter Called and left message to patient's daughter rose. awaits call back
[2016-04-29] MEDS: cefTRIAXone 1 GM IVPB PREMIX 50 ML IV SCH (15:24)
--- NOTE | 2016-04-29 16:08 | NUR ---
PATIENT RESTING: Patient resting quietly. No acute distress noted. Vital signs within normal range.
--- NOTE | 2016-04-29 17:13 | NUR ---
Nutrition F/U Admitting Diagnosis Knee Pain, Dehydration Past Medical History Homeless, possible history of stomach ulcers per pt's daughter Past Surgical Hx: None noted Pt found with R knee pain, possible acute arthritis, UTI, possible acute renal failure, polysubstance abuse, hyponatremia, toxic encephalopathy, anemia per MD's notes. 04/24/16 Care Partner note: Improving, continue IVF hydration, likely secondary to dehydration, acute tubular necrosis, renal ultrasound did not show any gross hydronephrosis. Pertinent Medications Protonix, ferrous sulfate, KCl/NaCl IVF at 100 ml/hr, ceftriaxone Na/dext, norco, carafate, colchicine tab Current Diet Order Regular Height (Feet) 5 feet Height (Inches) 3.00 inches Weight (Pounds) 169 pounds (admission); bedscale (04/29/16): 175.9 lbs Weight (Calculated Kilograms) 76.371713 kilograms Patient Weight 76.657 kg Body Mass Index 29.93 Widen/Adjusted Body Weight 115 lb, 52 kg. 148% of IBW. Adj BW: 128 lb, 58 kg. UBW: Estimated Needs 2201-2593 kcal/day (25-30 kcal/kg IBW for Geriatric Maintenance) Grams of Protein per Day 52 gm/day (1 gm/kg IBW for Geriataric Maintenance) Fluid Intake Goal 1300 ml/day (25 ml/kg IBW for Geriatric Maintenance) Pertinent Labs 04/27/16: K 4.1 WNL (improved), eGFR 50 L, BG 104 H 04/26/16: H/H 9.7/28.9 L, AST 143 H, ALT 85 H, ALB 2.2 L Other Subjective Data Nutrition Consult (non-intact skin sec to friction) 04/28/16 1847 Pt seen resting in bed covered in blankets. Pt reported poor PO intake d/t decreased appetite and abdominal pain. Denied nausea or vomiting, but endorsed diarrhea this AM. Pt reported she typically eats 2 meals/day at home. Pt asked for jello and a ham and cheese sandwich at time of visit; RD to inform [facility] staff to send w/ dinner and as HS snack. Pt reported previously weighing 180 lbs a few months ago; denied recent wt changes. Per RN, pt has been having abdominal pain. No planned procedures today; reported waiting on d/c orders. Per EMR, average PO intake is 22% x 2 days; abdomen is soft/non-distended with active bowel sounds. Toni scale: 20. I/Os (04/29/16): 1320/0 (+1320 ml); 2 BMs 04/28. Current diet is appropriate, however, pt is not yet meeting optimal nutritional needs. Recommend oral supplement Boost Plus ID (chocolate flavor per pt request) to provide additional 1080 kcals and 42 gm protein per day. MORGAN left note for MD to sign. Pt is not yet appropriate for nutrition education. Problem, Etiology, Signs/Symptoms Inadequate oral intakes related to pain as evidenced by pt's reports, trending down PO intakes from 100% to 30-40% Expected Outcomes or Goals Goal: PO intakes to meet at least 50-75% of estimated needs with tolerance Monitor: PO intakes, tolerance to diet, labs, GI function, weights Dietitian Recommendations * Continue regular diet per MD * Recommend oral supplement Boost Plus TID Follow Up High Risk: F/U in 2-3 days Addendum: 04/29/16 at [address] MORGAN spoke to Dr. Soliman on the phone who agreed w/ recommendations. MORGAN placed oral supplement order per MD (did not leave note for MD to sign).
--- NOTE | 2016-04-29 18:09 | NUR ---
CLOSING NOTE: All needs met. No change in assessment. Will endorse to NOC shift nurse.
--- NOTE | 2016-04-29 19:30 | NUR ---
initial nursing notes: Patient in bed. Patient stated that she does not want to have the IV fluids anymore since she's been eating a Regular diet. Will notify doctor of patient's request.
--- NOTE | 2016-04-29 19:36 | NUR ---
Paged dr Soliman (lead generation specialist for Dr Enriquez).
--- NOTE | 2016-04-29 19:59 | NUR ---
Discontinue IV fluid: Patient requested for the IV fluid to be discontinued, Dr. Soliman made aware. Dr. Soliman ordered to discontinue patient's IV fluid.
[2016-04-29] MEDS: AMITRIPTYLINE HCL 10 MG TABLET (ELAVIL) PO SCH (20:34)
--- NOTE | 2016-04-29 21:30 | NUR ---
nursing rounds: Patient in bed, watching television. Patient denies of having pain.
--- NOTE | 2016-04-29 22:45 | NUR ---
Patient's daughter returned a phone call. Patient's daughter, Astrid, called back to state that there is no room available for the patient in her daughter's house. Per patient's daughter, the patient is "homeless."
--- NOTE | 2016-04-29 23:30 | NUR ---
nursing rounds: Patient is asleep. Patient has no shortness of breath.
--- NOTE | 2016-04-30 01:30 | NUR ---
nursing rounds: Patient calmly resting in bed. Call light within patient's reach.
--- NOTE | 2016-04-30 03:30 | NUR ---
nursing rounds: Patient is asleep. Patient has no respiratory distress.
[2016-04-30 04:17] VITALS: BP 121/72; PULSE 70; RESP 18; TEMP 98.6; O2SAT 95
--- NOTE | 2016-04-30 05:30 | NUR ---
nursing rounds: Patient calmly resting in bed. Patient has no episode of falls and no injuries.
--- NOTE | 2016-04-30 07:20 | NUR ---
initial notes: pt on bed sleeping. no distress noted. call light within reach. report given at bedside.
--- NOTE | 2016-04-30 07:39 | NUR ---
closing nursing notes: Patient is awake and alert. Patient denies of having pain. Patient is in no acute respiratory distress. Saline lock on the left forearm intact. No episodes of fall and no injuries throughout the overnight caregiver. Provided nursing report to incoming morning shift nurse, Lana Velasquez RN, at patient's bedside.
[2016-04-30] MEDS: SUCRALFATE 1 GM TABLET PO SCH ×2 (09:37→15:32)
[2016-04-30] MEDS: HYDROcodone/ACETAMIN 5-325 MG TAB (NORCO/ VICODIN) PO PRN ×2 (09:37→15:31)
[2016-04-30] MEDS: COLCHICINE 0.6 MG TABLET PO SCH (09:38)
[2016-04-30] MEDS: PANTOPRAZOLE SODIUM 40 MG TAB PO SCH (09:38)
[2016-04-30] MEDS: FERROUS SULFATE 325 MG TABLET.DR PO SCH (09:38)
--- NOTE | 2016-04-30 10:00 | NUR ---
rounds: pt on bed. no distress noted.
--- NOTE | 2016-04-30 10:05 | NUR ---
rounds: pt complained of chest pain. v/s taken. pain meds given. Informed Dr. Soliman with an order of EKG.
[2016-04-30 12:21] VITALS: BP 141/79; PULSE 70; RESP 19; TEMP 97.4; O2SAT 99
--- NOTE | 2016-04-30 13:54 | NUR ---
patients daughter SW with Rose patient's daughter regarding discharge home with homehea. Per Rose she was in a birthday republican of her daughter the whole day yesterday that is why shewasnt able to call back. That her house has only one bedroom and that there is no room for her mom to go or stay there. Per rose, her mom will end up in the street again. Per Rose, she is working this week and that she is making phone calls in places where her mom can stay. Informed rose that hospital outreach and education social worker and human services case manager are available if she Rose needs assistance.
--- NOTE | 2016-04-30 15:00 | NUR ---
rounds/pt insist of going home: patient want to go home and no place for her to go. Charge nurse, Aliyah, asked the patient where she will go and informed the patient the daughter, Astrid, has no room for her in her apartment. Patient verbalized going to friend's home. Asked the address and patient unable to give complete address. Explained to her the risk of going home against medical advice and education given that is not safe for her to go. Patient willing to sign the AMA paper and insisted on going home.
[2016-04-30] MEDS: cefTRIAXone 1 GM IVPB PREMIX 50 ML IV SCH (15:31)
[2016-04-30 16:00] VITALS: BP 120/68; PULSE 97; RESP 21; TEMP 97.2; O2SAT 96
--- NOTE | 2016-04-30 16:00 | NUR ---
rounds: patient give education that she still needs to stay overnight in the hospital, she is not stable to go since earlier she complained of chest pain. Patient verbalized "I'll be OK" and insist of going home. Signed the AMA paper and putting her clothes and shoes.
--- NOTE | 2016-04-30 17:09 | NUR ---
PT'S DAUGHTER SW Astrid pt's daughter, and informed her that her mother signed againts medical advice of Dr Benitez Soliman. Informed Astrid that her mother was informed of the Risk of leaving againts medical advised and that her mother understood that by signing AMA the hospital will not be able to help facilitate placement.
--- NOTE | 2016-04-30 17:20 | NUR ---
Patient left: patient left ambulatory with her 4 wheel walker. Education materials provided.
--- NOTE | 2016-05-01 11:25 | NUR ---
DISCHARGE PLANNING Called and spoke with Jeanna at [facility] who stated she spoke with daughter this morning and family/patient are refusing home health.
== END 2016-04-30 17:20 | disposition left against medical advice (07) | DRG 52 ==
LOC: SED 12:40 → SMU 16:19
PROVIDERS: ADMIT Internal Medicine; ATTEND Internal Medicine
DX: G92 Toxic encephalopathy (principal); N17.0 Acute kidney failure with tubular necrosis; E43 Unspecified severe protein-calorie malnutrition; N39.0 Urinary tract infection, site not specified; E86.0 Dehydration; E87.1 Hypo-osmolality and hyponatremia; K80.20 Calculus of gallbladder without cholecystitis without obstruction; D64.9 Anemia, unspecified; M19.90 Unspecified osteoarthritis, unspecified site; F19.20 Other psychoactive substance dependence, uncomplicated; G89.29 Other chronic pain; F32.9 Major depressive disorder, single episode, unspecified; I10 Essential (primary) hypertension; F15.10 Other stimulant abuse, uncomplicated; M10.9 Gout, unspecified; Z59.0 Homelessness; Z87.11 Personal history of peptic ulcer disease; Z68.29 Body mass index [BMI] 29.0-29.9, adult
CPT/HCPCS: 36415; 73564; 76700-TC; 76705; 76770; 80048; 80053; 80307; 81000-TC; 82140-TC; 82150-TC; 83605; 83690-TC; 84439; 84443-TC; 84550-TC; 85025; 86705; 86709; 86803; 87040-TC; 87081; 87086; 87186-TC; 87340; 93005; 96365; 96372; 97110-GP; 97116-GP; 97530-GP; 99285; J0696; J1885; J3480; J7030